=== PATIENT | male | born 1950 | race Caucasian/White ===

== ENCOUNTER 2018-01-11 11:16 | Inpatient (IN) | payer MEDICARE ==
[~2018-01-11] VITALS: Ht 172.7 cm; Wt 95.3 kg
[2018-01-11] MEDS: SODIUM CHLORIDE 0.9% 1000ML 1,000 ML IV SCH (01:30)
[~2018-01-11 11:16] MED LIST: ALEVE; ATORVASTATIN CA20 MG PO; FERROUS SULFAT325 MG PO; GLIPIZIDE ER5 MG PO; GLIPIZIDE5 MG PO; HUMALOG SQ; IRON INFUSION; LANTUS 3ML100 UNITS/ SQ; LASIX20 MG PO; LIPITOR20 MG PO; LISINOPRIL10 MG PO; MACROBID 100 M100 MG PO; METFORMIN HCL500 MG PO; POTASSIUM; TAMSULOSIN HCL0.4 MG PO; TYLENOL WITH C1 EACH PO; VITAMIN C500 M1 PO
[2018-01-11] MEDS ORDERED: SODIUM CHLORIDE 0.9% 250ML 250 ML IV ONE ×2 (11:30→12:30)
[2018-01-11 11:43] LABS: BASOPHILS % 0.2 % (0.0-1.0); EOSINOPHILS # (AUTO) 0.1 (0.0-0.4); EOSINOPHILS % 0.8 % (0.0-6.0); HEMATOCRIT 14.8 % (38.2-49.6); LYMPHOCYTES # (AUTO) 1.2 (1.0-3.2); LYMPHOCYTES % 9.7 % (18.0-39.1); MEAN CORPUSCULAR HEMOGLOBIN 27.6 pg (28-32); MEAN CORPUSCULAR HGB CONC 30.4 g/dL (31-35); MEAN CORPUSCULAR VOLUME 90.8 fL (81-99); MONOCYTES # (AUTO) 0.7 (0.2-0.8); MONOCYTES % 5.4 % (4.4-11.3); NEUTROPHILS # (AUTO) 10.2 (2.1-6.9); NEUTROPHILS % 82.4 % (38.7-80.0); PLATELET COUNT 244 x10e3/uL (140-360); RED BLOOD COUNT 1.63 x10e6/uL (4.3-5.7); RED CELL DISTRIBUTION WIDTH 18.5 % (11.7-14.4)
[2018-01-11 11:45] LABS: HEMOGLOBIN 4.5 g/dL (14.0-18.0)
[2018-01-11 11:52] LABS: INR 1.15; PROTHROMBIN TIME 13.8 seconds (11.9-14.5)
[2018-01-11 11:53] LABS: PARTIAL THROMBOPLASTIN TIME 34.3 seconds (23.8-35.5)
[2018-01-11 12:00] LABS: ALBUMIN 2.1 g/dL (3.5-5.0); ALBUMIN/GLOBULIN RATIO 0.5 (0.8-2.0); ANION GAP 16.4 mmol/L (8-16); CALCIUM 8.6 mg/dL (8.4-10.2); CREATININE, SERUM 2.95 mg/dL (0.72-1.25); POTASSIUM 5.4 mmol/L (3.5-5.1)
[2018-01-11 12:06] LABS: CREATINE KINASE MB 1.8 ng/mL (0-5.0)
[2018-01-11] MEDS ORDERED: DEXTROSE 50% SYRINGE 50 ML IV PRN (12:30)
[2018-01-11] MEDS ORDERED: SODIUM CHLORIDE FLUSH 10 ML SYR INJ PRN (12:30)
[2018-01-11] MEDS: INSULIN REGULAR, HUMAN 100 UNIT/1 ML 3ML VIAL SQ SCH ×2 (17:20→21:45)
[2018-01-11 17:52] VITALS: BP 155/67
[2018-01-11 18:10] VITALS: BP 155/67
[2018-01-11] MEDS ORDERED: SOD POLYSTYRENE SULFONATE SUSP 15 GM/60 ML BTL PO NR (19:45)
[2018-01-11] MEDS ORDERED: SORBITOL 70% 30 ML UDC PO ONE (20:00)
[2018-01-11] MEDS: FUROSEMIDE INJ 10 MG/ML 2 ML VIAL IV SCH (20:05)
[2018-01-11 20:24] VITALS: BP 143/72
[2018-01-11] MEDS: ATORVASTATIN 20 MG TAB PO SCH ×2 (21:00→21:45)
[2018-01-11 21:28] VITALS: BP 143/72
[2018-01-11] MEDS: INSULIN DETEMIR 100 UNIT/ML PEN SQ SCH (21:47)
[2018-01-11] MEDS ORDERED: SODIUM CHLORIDE 0.9% 250ML 250 ML ONE (22:20)
[2018-01-12] VITALS (8 sets, daily range): BP systolic 127–167; BP diastolic 64–85
[2018-01-12 00:15] LABS: CLARITY,URINE CLOUDY (CLEAR); COLOR,URINE RED (YELLOW); LEUKOCYTE ESTERASE ,URINE TRACE (NEGATIVE); NITRITE,URINE NEGATIVE (NEGATIVE); PROTEIN,URINE DIPSTICK 2+ (NEGATIVE)
[2018-01-12 00:16] LABS: BILIRUBIN,URINE NEGATIVE (NEGATIVE); EPITHELIAL CELLS,URINE FEW /LPF; KETONES,URINE NEGATIVE (NEGATIVE); RBC,URINE >50 /HPF (0-5); URINE UROBILINOGEN 0.2 mg/dL (0.2 - 1); WBC,URINE (MAN) 0-5 /HPF (0-5)
[2018-01-12] MEDS: SODIUM CHLORIDE 0.9% 1000ML 1,000 ML IV SCH ×2 (01:30→16:37)
[2018-01-12] MEDS: FUROSEMIDE INJ 10 MG/ML 2 ML VIAL IV SCH (01:45)
[2018-01-12 05:35] LABS: BASOPHILS % 0.5 % (0.0-1.0); EOSINOPHILS # (AUTO) 0.1 (0.0-0.4); EOSINOPHILS % 1.1 % (0.0-6.0); HEMATOCRIT 21.6 % (38.2-49.6); HEMOGLOBIN 7.1 g/dL (14.0-18.0); LYMPHOCYTES # (AUTO) 0.8 (1.0-3.2); LYMPHOCYTES % 10.4 % (18.0-39.1); MEAN CORPUSCULAR HEMOGLOBIN 29.1 pg (28-32); MEAN CORPUSCULAR HGB CONC 32.9 g/dL (31-35); MEAN CORPUSCULAR VOLUME 88.5 fL (81-99); MONOCYTES # (AUTO) 0.6 (0.2-0.8); NEUTROPHILS # (AUTO) 6.3 (2.1-6.9); NEUTROPHILS % 78.7 % (38.7-80.0); PLATELET COUNT 170 x10e3/uL (140-360); RED BLOOD COUNT 2.44 x10e6/uL (4.3-5.7); RED CELL DISTRIBUTION WIDTH 15.8 % (11.7-14.4)
[2018-01-12 06:02] LABS: ANION GAP 13.6 mmol/L (8-16); CALCIUM 8.4 mg/dL (8.4-10.2); CREATININE, SERUM 2.25 mg/dL (0.72-1.25); POTASSIUM 4.6 mmol/L (3.5-5.1)
[2018-01-12 06:45] LABS: EOSINOPHILS % (MANUAL) 1 % (0-7); LYMPHOCYTES % (MANUAL) 13 % (19-48); METAMYELOCYTES % (MANUAL) 1 % (0-0); MONOCYTES % (MANUAL) 8 % (3.4-9.0); MYELOCYTES % (MANUAL) 1 % (0-0); NEUTROPHILS % (MANUAL) 75 % (40-74)
[2018-01-12 06:46] LABS: PLATELET ESTIMATE ADEQUATE; PLATELET MORPHOLOGY COMMENT NORMAL
[2018-01-12 06:47] LABS: ANISOCYTOSIS SLIGHT; HYPOCHROMASIA MODERATE; POIKILOCYTOSIS SLIGHT; RBC MORPHOLOGY COMMENT NORMAL
[2018-01-12] MEDS: INSULIN REGULAR, HUMAN 100 UNIT/1 ML 3ML VIAL SQ SCH ×4 (07:30→22:08)
[2018-01-12] MEDS: GLIPIZIDE 5 MG TAB ER PO SCH ×2 (07:50→16:44)
[2018-01-12] MEDS ORDERED: METFORMIN HCL 500 MG TAB PO SCH (08:00)
[2018-01-12] MEDS: TAMSULOSIN HCL 0.4 MG CAP PO SCH (08:05)
[2018-01-12] MEDS: NITROFURANTOIN MACROCRYSTALS 100 MG CAP PO SCH ×2 (08:05→16:44)
[2018-01-12] MEDS ORDERED: FUROSEMIDE INJ 10 MG/ML 2 ML VIAL IV ONE (09:45)
--- NOTE | 2018-01-12 09:52 | Consultation ---
DATE OF CONSULTATION: January 12, 2018 A 67-year-old gentleman with multiple issues, including history of diabetes, insulin-dependent, bladder cancer, prostate cancer, status post intravesicular mitomycin, hematuria, which is chronic leading to anemia requiring multiple transfusions, history of hypertension, history of hyperlipidemia, history of bilateral arthroscopic knee surgeries, multiple cystoscopies, has been on lisinopril, metformin and diuretics at home. Currently, awake and alert. Brought in with a hemoglobin of 4.5. Status post packed RBC transfusion. Now, the hemoglobin is 7.1. Renal consulted for acute kidney injury. BUN and creatinine 49 and 2.5, sodium 142, bicarbonate 23, chloride 110. Patient denies prior history of any kidney insufficiency or kidney stone disease. Discuss with Dr. Mari. His baseline serum creatinine was normal about a month ago. Patient comfortable laying supine. REVIEW OF SYSTEMS: Negative for nausea, vomiting, chest pain, or shortness of breath. Continues to have hematuria. ALLERGIES: NO APPARENT DRUG ALLERGIES. CURRENT MEDICATIONS: Lasix 20 IV b.i.d., glipizide, nitrofurantoin, , ondansetron, insulin, metformin, atorvastatin, Flomax. For dose schedule, please see MAR. SOCIAL HISTORY: Does not smoke or drink. FAMILY HISTORY: Significant for hypertension and diabetes. PHYSICAL EXAMINATION GENERAL: Awake, alert and laying supine. No apparent distress. VITALS: Blood pressure 150/86, pulse rate 77, afebrile, oxygen saturation 100%. HEAD AND NECK: Cornea clear. Mucosa dry. LUNGS: Relatively clear. HEART: S1 and S2 audible. ABDOMEN: Otherwise soft and nontender. EXTREMITIES: Shows 2+ edema. IMPRESSION AND PLAN 1. Acute kidney injury, etiology unclear: He did receive intravesicular mitomycin. 2. Lower extremity edema. 3. Significant anemia. 4. Hematuria. 5. Bladder and prostate cancer. 6. Type 1 diabetes, possible diabetic nephropathy, but a baseline creatinine was normal a month ago. Suspect acute tubular necrosis. PLAN: Apply TAMMY hammond. Sending urine for protein and creatinine ratio and uric acid level. Will add CPK to the specimen sent to lab. Urinalysis. Will get a stat echocardiogram to evaluate LV function although he did not receive IV mitomycin. Discussed with the patient. Discussed with Dr. Mari. Job#: [id number] RI
[2018-01-12] MEDS ORDERED: SODIUM CHLORIDE 0.9% 250ML 250 ML IV ONE (10:00)
[2018-01-12] MEDS: ONDANSETRON HCL INJ 2 MG/ML VIAL IV PRN ×2 (11:07→16:44)
[2018-01-12] MEDS: HYDROMORPHONE 1MG/1ML INJ IV PRN ×3 (11:07→22:09)
[2018-01-12] MEDS ORDERED: SODIUM CHLORIDE 0.9% 250ML 250 ML ONE (13:36)
--- NOTE | 2018-01-12 15:50 | Diagnostic Imaging Report ---
PROCEDURE:US RETROPERITONEAL ( KIDNEY ). COMPARISON:None. INDICATIONS:GROSS HEMATURIA, BLADDER CANCER TECHNIQUE: Huitron-scale and color sonographic images of the bilateral kidneys and bladder where obtained in transverse and longitudinal planes. FINDINGS: RIGHT KIDNEY: 12.6 cm, cortex 1.7 cm Cysts: None Solid masses: None Stones: None Hydronephrosis: Moderate Echogenicity: Normal LEFT KIDNEY: 12.2 cm, cortex 1.7 cm Cysts: None Solid masses: None Stones: None Hydronephrosis: Mild to moderate Echogenicity: Normal Bladder: 4.9 x 3.9 x 6.9 cm hyperechoic non-shadowing, irregularly shaped mass in the bladder lumen. CONCLUSION: 1. 6.9 cm irregular shaped mass in the posterior bladder lumen, consistent with known bladder neoplasm. 2. Moderate right and mild to moderate left hydronephrosis. 3. Normal bilateral renal size, and echogenicity. Vaughn Marcos M.D. Dictated by: Vaughn Marcos M.D. on 01/12/2018 at 15:55 Electronically approved by: Vaughn Marcos M.D. on 01/12/2018 at 15:55
[2018-01-12] MEDS: ATORVASTATIN 10 MG TAB PO SCH (21:00)
[2018-01-12 21:07] LABS: CLARITY,URINE CLOUDY (CLEAR); COLOR,URINE RED (YELLOW)
[2018-01-12 21:08] LABS: KETONES,URINE NEGATIVE (NEGATIVE); LEUKOCYTE ESTERASE ,URINE 1+ (NEGATIVE); NITRITE,URINE POSITIVE (NEGATIVE); PROTEIN,URINE DIPSTICK 3+ (NEGATIVE); URINE UROBILINOGEN 1 mg/dL (0.2 - 1)
[2018-01-12 21:09] LABS: BILIRUBIN,URINE NEGATIVE (NEGATIVE)
[2018-01-12 21:58] LABS: RBC,URINE >50 /HPF (0-5)
[2018-01-12] MEDS: INSULIN DETEMIR 100 UNIT/ML PEN SQ SCH (22:09)
--- NOTE | 2018-01-12 22:27 | Consultation ---
DATE OF CONSULTATION: January 12, 2018 This patient is a 67-year-old white male whom I have been following for both bladder cancer and prostate cancer. The patient initially had gross hematuria and a CT scan revealed a 3.3 cm mass in the bladder in the right anterior portion of the bladder. He had a positive FISH test. He went on to have a transurethral resection of the bladder tumor on February 13, 2017. The tumor was poorly differentiated but with invasion into the lamina propria, but no evidence of muscular invasion. The patient had another transurethral resection of a recurrent bladder tumor in April 2017 and then he had a small recurring tumor on October 30, 2017 which was also transurethral resected. The patient's prostate cancer is remarkable in that he had a needle biopsy on July 20, 2015, which was positive for prostate cancer. The patient was treated initially with some Zoladex and with external beam radiation therapy. He declined a radical prostatectomy. The patient had gone on a vacation to [place] during which time he admits that he was smoking. The patient came back to my office yesterday and was feeling extremely weak and looked extremely pale, and after physical examination I felt that the patient needed to be admitted to the hospital on an emergent basis, and I called Dr. Bah and the patient was admitted under Dr. Bah's care. At the time of admission, the patient's hemoglobin was 4.5 and his hematocrit was 14.8. The patient was also in renal failure. He had a potassium of 5.4 and he had a creatinine of 2.95, and a BUN of 57, which goes along with acute renal failure and dehydration. The patient has now received a total of 4 units of packed red cells blood transfusion. He states that he is feeling much better. He states that with the hydration he has been getting through the IV that the urine is much less bloody at this point in time. He also states he feels much stronger and much better. PAST MEDICAL HISTORY: Remarkable in that he has the blood loss anemia. He has had blood in his stool. He has had mumps, measles, obesity, chicken pox. He has hypertension, hypercholesterolemia and insulin-dependent diabetes mellitus. FAMILY HISTORY: Remarkable in that his father, mother, brother and uncle have diabetes. His father has had a heart attack. His father has had hypercholesterolemia. His uncle and father have had hypertension. His mother and brother have had renal failure. The patient has been smoking since 1964. He states he smokes less than 1/2 pack a day, but he states he was smoking cigars during his vacation. The patient has had several blood transfusions in the past prior to this admission under the supervision of Dr. Bah. Physical examination today is substantially different than it was yesterday. The patient no longer appears pale. His abdomen is soft. His conjunctivae are no longer pale. Generally, he looks a lot better. However, his last hemoglobin was 7.1 this morning. He received another blood transfusion and the hemoglobin and hematocrit status post that transfusion is still pending. Hopefully, the patient's creatinine will continue to improve with his hydration. His creatinine this morning was down to 2.25 from a high of 2.95, and his potassium had gone from 5.4 down to 4.6, and his BUN had gone down from 57 to 49. IMPRESSION: My impression at this time is that the patient came in with a blood loss anemia and dehydration and acute renal failure secondary to hemorrhaging from recurrent bladder cancer. I have discussed with the patient the option of transferring his care to [facility] to see about having a radical cystectomy to put an end to all this bleeding. I am sure he has recurrent cancer at this point in time as the source of his bleeding. I do not know if the tumor is invasive or noninvasive at this time, but the mere fact that for the past several resections he has had a high-grade lesion with invasion through the lamina propria, but not into the muscularis, I think the odds are overwhelming that he will ultimately go invasive, and that the best thing for him would be to have a cystectomy at this point in time. This will be complicated because he has already had radiation therapy to the prostate, but I think the best place for him to have this might be at [facility]. Further recommendations will be made after he has stabilized more completely. Thank you for this consultation. Job#: [id number]
[2018-01-13] VITALS (8 sets, daily range): BP systolic 121–144; BP diastolic 67–79
[2018-01-13 00:02] LABS: CREATININE,URINE RANDOM 40.53 mg/dL (63-166)
[2018-01-13 00:24] LABS: TOTAL PROTEIN, URINE 656.9 mg/dL (1-14)
--- NOTE | 2018-01-13 01:54 | Discharge Summary ---
This discharge dictation is the result of hitting a wrong button "No dictation, length 0:17" MERCY VERDE MD Job#: [id number] [email or web address]
[2018-01-13] MEDS: SODIUM CHLORIDE 0.9% 1000ML 1,000 ML IV SCH ×4 (02:02→21:38)
[2018-01-13] MEDS: HYDROMORPHONE 1MG/1ML INJ IV PRN ×5 (02:24→20:55)
[2018-01-13 05:45] LABS: BASOPHILS % 0.3 % (0.0-1.0); EOSINOPHILS # (AUTO) 0.1 (0.0-0.4); EOSINOPHILS % 1.3 % (0.0-6.0); LYMPHOCYTES # (AUTO) 0.6 (1.0-3.2); LYMPHOCYTES % 6.8 % (18.0-39.1); MEAN CORPUSCULAR HEMOGLOBIN 29.3 pg (28-32); MEAN CORPUSCULAR VOLUME 91.6 fL (81-99); MONOCYTES # (AUTO) 0.7 (0.2-0.8); MONOCYTES % 7.2 % (4.4-11.3); NEUTROPHILS # (AUTO) 7.8 (2.1-6.9); NEUTROPHILS % 82.7 % (38.7-80.0); PLATELET COUNT 154 x10e3/uL (140-360); RED BLOOD COUNT 2.73 x10e6/uL (4.3-5.7); RED CELL DISTRIBUTION WIDTH 16.4 % (11.7-14.4)
[2018-01-13 06:10] LABS: ALBUMIN 2.2 g/dL (3.5-5.0); ALBUMIN/GLOBULIN RATIO 0.6 (0.8-2.0); ANION GAP 13.1 mmol/L (8-16); CALCIUM 8.3 mg/dL (8.4-10.2); CREATININE, SERUM 2.03 mg/dL (0.72-1.25); POTASSIUM 4.1 mmol/L (3.5-5.1)
[2018-01-13] MEDS: INSULIN REGULAR, HUMAN 100 UNIT/1 ML 3ML VIAL SQ SCH ×3 (07:30→15:58)
[2018-01-13] MEDS: GLIPIZIDE 5 MG TAB ER PO SCH ×2 (08:39→16:45)
[2018-01-13] MEDS: NITROFURANTOIN MACROCRYSTALS 100 MG CAP PO SCH ×2 (08:40→16:45)
[2018-01-13] MEDS: TAMSULOSIN HCL 0.4 MG CAP PO SCH (08:40)
[2018-01-13] MEDS ORDERED: SODIUM CHLORIDE 0.9% 250ML 250 ML IV ONE (10:15)
[2018-01-13] MEDS: FUROSEMIDE INJ 10 MG/ML 2 ML VIAL IV PRN ×2 (11:15→16:45)
[2018-01-13] MEDS ORDERED: SODIUM CHLORIDE 0.9% 250ML 250 ML ONE (17:12)
--- NOTE | 2018-01-13 20:08 | Progress Note ---
DATE: January 13, 2018 The patient's hemoglobin this morning was 8.0 after a total of 4 units of packed red cells. He is getting 2 more units today. He is currently getting unit #6 at the time that I examined him. The patient looks much better. He states he feels much better. His abdomen is soft. He states that sometimes his urine is clear, but most of time it is red now. His BUN has gone down to 42. His creatinine is 2.03. I discussed with the patient the option of going to [facility] and I also discussed with him the option of going to [facility] while I advised him that Dr. Paolo Kline at [facility] was involved in establishing the current AUA guidelines for bladder cancer and that it can sometimes get very confusing as to what is the best way to go; but I have advised the patient I thought I have done all I can for him right now at this point in time and I am pretty sure he has recurrent bladder cancer and if he is going to be re-cystoscoped, let the people either at [facility] or at [facility] do it because they might want to take a look themselves before deciding upon a cystectomy. The patient states at this point in time, he would rather go home first than have any surgical intervention or hospital transfer. I advised him that if he does get discharged and goes home after his blood transfusions, he needs to see me in the office right away so that I could effect for a transfer to the care at either [facility] or to [facility] as quickly as possible. Job#: [id number] JUDSON
[2018-01-13] MEDS: ATORVASTATIN 10 MG TAB PO SCH (20:45)
[2018-01-13] MEDS: INSULIN DETEMIR 100 UNIT/ML PEN SQ SCH (21:00)
[2018-01-14 00:21] VITALS: BP 151/77
[2018-01-14] MEDS: INSULIN REGULAR, HUMAN 100 UNIT/1 ML 3ML VIAL SQ SCH ×5 (01:11→21:00)
[2018-01-14] MEDS: HYDROMORPHONE 1MG/1ML INJ IV PRN ×4 (02:20→20:13)
[2018-01-14 05:12] VITALS: BP 149/68
[2018-01-14 05:53] LABS: BASOPHILS % 0.5 % (0.0-1.0); EOSINOPHILS # (AUTO) 0.1 (0.0-0.4); EOSINOPHILS % 2.3 % (0.0-6.0); HEMATOCRIT 26.6 % (38.2-49.6); HEMOGLOBIN 8.6 g/dL (14.0-18.0); LYMPHOCYTES # (AUTO) 0.7 (1.0-3.2); LYMPHOCYTES % 12.3 % (18.0-39.1); MEAN CORPUSCULAR HEMOGLOBIN 28.8 pg (28-32); MEAN CORPUSCULAR HGB CONC 32.3 g/dL (31-35); MONOCYTES # (AUTO) 0.5 (0.2-0.8); MONOCYTES % 7.8 % (4.4-11.3); NEUTROPHILS # (AUTO) 4.6 (2.1-6.9); NEUTROPHILS % 75.6 % (38.7-80.0); PLATELET COUNT 127 x10e3/uL (140-360); RED BLOOD COUNT 2.99 x10e6/uL (4.3-5.7); RED CELL DISTRIBUTION WIDTH 16.4 % (11.7-14.4)
[2018-01-14 06:18] LABS: ALBUMIN/GLOBULIN RATIO 0.6 (0.8-2.0); ANION GAP 12.8 mmol/L (8-16); CALCIUM 8.3 mg/dL (8.4-10.2); CREATININE, SERUM 1.33 mg/dL (0.72-1.25); POTASSIUM 4.8 mmol/L (3.5-5.1)
[2018-01-14] MEDS: NITROFURANTOIN MACROCRYSTALS 100 MG CAP PO SCH ×2 (09:12→17:30)
[2018-01-14] MEDS: TAMSULOSIN HCL 0.4 MG CAP PO SCH (09:12)
[2018-01-14] MEDS: GLIPIZIDE 5 MG TAB ER PO SCH ×2 (09:12→17:30)
[2018-01-14] MEDS ORDERED: SODIUM CHLORIDE 0.9% 250ML 250 ML IV SCH (11:00)
[2018-01-14 11:54] VITALS: BP 142/89
[2018-01-14 12:00] VITALS: BP 142/89
[2018-01-14] MEDS: FUROSEMIDE INJ 10 MG/ML 2 ML VIAL IV PRN ×2 (12:05→15:21)
[2018-01-14] MEDS ORDERED: SODIUM CHLORIDE 0.9% 250ML 250 ML ONE (15:47)
[2018-01-14 16:05] VITALS: BP 149/79
[2018-01-14 20:00] VITALS: BP 148/78
[2018-01-14] MEDS: ATORVASTATIN 10 MG TAB PO SCH (20:13)
[2018-01-14] MEDS: INSULIN DETEMIR 100 UNIT/ML PEN SQ SCH (21:00)
[2018-01-15] VITALS: BP 151/70
[2018-01-15] MEDS: HYDROMORPHONE 1MG/1ML INJ IV PRN (00:11)
[2018-01-15 04:00] VITALS: BP 146/67
[2018-01-15 05:51] LABS: BASOPHILS % 0.5 % (0.0-1.0); EOSINOPHILS # (AUTO) 0.1 (0.0-0.4); EOSINOPHILS % 1.3 % (0.0-6.0); HEMATOCRIT 34.2 % (38.2-49.6); HEMOGLOBIN 11.1 g/dL (14.0-18.0); LYMPHOCYTES # (AUTO) 0.6 (1.0-3.2); LYMPHOCYTES % 8.6 % (18.0-39.1); MEAN CORPUSCULAR HEMOGLOBIN 28.9 pg (28-32); MEAN CORPUSCULAR HGB CONC 32.5 g/dL (31-35); MEAN CORPUSCULAR VOLUME 89.1 fL (81-99); MONOCYTES # (AUTO) 0.7 (0.2-0.8); MONOCYTES % 9.4 % (4.4-11.3); NEUTROPHILS # (AUTO) 5.8 (2.1-6.9); NEUTROPHILS % 78.1 % (38.7-80.0); PLATELET COUNT 140 x10e3/uL (140-360); RED BLOOD COUNT 3.84 x10e6/uL (4.3-5.7); RED CELL DISTRIBUTION WIDTH 16.4 % (11.7-14.4)
[2018-01-15 06:21] LABS: ANION GAP 12.7 mmol/L (8-16); BLOOD UREA NITROGEN 26 mg/dL (7-26); BUN/CREATININE RATIO 23 (6-25); CALCIUM 8.4 mg/dL (8.4-10.2); CARBON DIOXIDE 27 mmol/L (22-29); CHLORIDE 106 mmol/L (98-107); CREATININE, SERUM 1.15 mg/dL (0.72-1.25); EST GLOMERULAR FILTRATION RATE > 60 ML/MIN (60-); POTASSIUM 3.7 mmol/L (3.5-5.1); SODIUM 142 mmol/L (136-145)
[2018-01-15 06:23] LABS: GLUCOSE 48 mg/dL (74-118)
[2018-01-15 07:30] VITALS: BP 146/67
[2018-01-15 07:44] LABS: LYMPHOCYTES % (MANUAL) 12 % (19-48); METAMYELOCYTES % (MANUAL) 1 % (0-0); MONOCYTES % (MANUAL) 8 % (3.4-9.0); NEUTROPHILS % (MANUAL) 75 % (40-74)
[2018-01-15 07:45] LABS: ANISOCYTOSIS SLIGHT; HYPOCHROMASIA SLIGHT; PLATELET ESTIMATE SLIGHTLY DECREASED; PLATELET MORPHOLOGY COMMENT NORMAL; RBC MORPHOLOGY COMMENT NORMAL; SMUDGE CELLS FEW
[2018-01-15 08:00] VITALS: BP 153/76
--- NOTE | 2018-01-15 11:07 | History and Physical ---
Mr. Mead is a 67-year-old male who saw Dr. Sonido Eisenberg at his office and found to be extremely anemic. Subsequently, had a call from Dr. Sonido Eisenberg. The hemoglobin was close to 5 g. Subsequently, the patient was suggested to be admitted for further evaluation and treatment as this patient has severe hematuria. SOCIAL HISTORY: History of smoking in the past. FAMILY HISTORY: Noncontributory. ALLERGIES: REPORTED NONE. MEDICATIONS: At this time consist of: 1. Insulin. 2. Ondansetron. REVIEW OF SYSTEMS HEENT: Normal. CARDIAC: Normal. RESPIRATORY: Normal. GI: Normal. : Cancer of the prostate in the past treated with radiation. Cancer of the bladder. The patient had TURB by Dr. Sonido Eisenberg. 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 The patient recently had rebleed. PHYSICAL EXAMINATION GENERAL: A moderate adult male very anemic. No palpable adenopathy. HEART: Within normal limits. LUNGS: Clear. ABDOMEN: Obese. RECTAL: Deferred. ROLL TENSION TESTER: Essentially normal. EXTREMITIES: Essentially normal. LABS: Shows a hemoglobin of 4.5, hematocrit 14.8, white count 12,300, and platelets reported at 244,000. The chemistry shows sodium of 138, potassium high at 5.4, chloride 109, CO2 18, BUN high at 57, creatinine 2.9, total protein low at 6.3, albumin low at 2.1, globulin as high as 4.2. IMPRESSION 1. History of bladder cancer. 2. History of prostate cancer. 3. Hematuria. 4. Anemia of blood loss. 5. Chronic renal failure. 6. Hyperkalemia. PLAN: Give him IV fluids. Blood transfusion. Urology and nephrology consultation. Job#: [id number] ALLIE
--- NOTE | 2018-01-15 11:22 | Discharge Summary ---
Mr. Mead is a 67-year-old white male admitted with severe anemia. On admission, hemoglobin was 4.5. Subsequently, 2 units of packed RBCs were given which brought the hemoglobin up to 7.1. The patient was still symptomatic, having a tremendous amount of bleed. Subsequently, 2 more units of packed RBCs were given that brought the hemoglobin up to 8. Still continued to have severe hematuria. Urology consultation was obtained. It was decided, since the patient has bladder cancer in the engel of radiation, the patient would have an appointment at [facility] for possible cystectomy and/or assessment. The cystoscopy was not done as this will be done at [facility]. Subsequently, on 01/14/2018, he continued to have hematuria. Two more units of packed RBCs were given, which brought the hemoglobin up today to 11.1. It seems that the hematuria has decreased in intensity. Sodium 138 and potassium 5.4 on admission with a high BUN of 57 and creatinine of 2.9. On close questioning, the patient has been using Naprosyn twice a day for the pain in the bladder region. It was discussed at length that it is a nephrotoxic drug. For pain, I prescribed Tylenol No. 3. A prescription was given to the yesterday. The BUN and creatinine came down slightly at 49 and 2.25 on 01/12/2018 with hydration. Nephrology consultation with Dr. Bender was obtained. The patient's BUN and creatinine today are 26 and 1.15. The blood sugar has been controlled with insulin. As part of workup, the patient had a renal ultrasound. The patient was found to have a 6.9-cm, irregular-shaped mass in the posterior bladder lumen, moderate right and mild to moderate left hydronephrosis. The patient subsequently has an appointment at [facility] for cystoscopy and possible bladder resection. However, this will be determined by the team at [facility]. The patient will be given all the disks as well as all my records. GRISELDA ENCISO MD Job#: [id number] cc:MERCY VERDE MD
[2018-01-16] MEDS ORDERED: LISINOPRIL 10 MG TAB PO SCH (09:00)
== END 2018-01-15 10:38 | disposition home or self-care (01) | DRG 686 ==
LOC: ER 11:16 → ERHOLD 12:19 → MED/SURG3 17:24
PROVIDERS: ADMIT Internal Medicine Medical Oncology; ATTEND Internal Medicine Medical Oncology
PROC: 30233P1 Transfusion of Nonautologous Frozen Red Cells into Peripheral Vein, Percutaneous Approach (ICD-10-PCS; principal; 2018-01-11)
DX: C67.9 Malignant neoplasm of bladder, unspecified (principal); N17.0 Acute kidney failure with tubular necrosis; D62 Acute posthemorrhagic anemia; R60.0 Localized edema; E10.21 Type 1 diabetes mellitus with diabetic nephropathy; Z79.4 Long term (current) use of insulin; R31.9 Hematuria, unspecified; F17.210 Nicotine dependence, cigarettes, uncomplicated; E86.0 Dehydration; E87.5 Hyperkalemia; I12.9 Hypertensive chronic kidney disease with stage 1 through stage 4 chronic kidney disease, or unspecified chronic kidney disease; N18.9 Chronic kidney disease, unspecified; E11.22 Type 2 diabetes mellitus with diabetic chronic kidney disease; Z85.46 Personal history of malignant neoplasm of prostate
CPT/HCPCS: 36415; 36430; 76770; 80048; 80053; 81001; 82550; 82553; 82570; 82948; 84156; 84484; 84550; 85025; 85610; 85730; 86850; 86900; 86920; 87086; 93005; 93306; 96361; 96372; 96374; 96376; 99284; J1170; J1940; J2405; J7030; J7050; J7799; P9016